=== PATIENT | male | born 1965 | race American Indian/Alaskan Native ===

== ENCOUNTER 2017-01-26 09:30 | Emergency (ER) | payer SELFPAY ==
[2017-01-26 10:38] LABS: Urine Drugs of Abuse Note Disclamer
[2017-01-26 10:56] LABS: Bilirubin,Urine NEG (Negative); Blood,Urine NEG (Negative); Ketones,Urine NEG (Negative); Leukocyte Esterase,Urine NEG (Negative); Mucus,Urine FEW /HPF; Nitrite,Urine NEG (Negative); Urobilinogen,Urine < 2.0 mg/dL (<2.0)
[2017-01-26 11:02] LABS: Basophils % (Auto) 0.9 % (0.0-1.8); Eosinophils % (Auto) 3.1 % (0.0-4.3); Hematocrit 43.4 % (35.5-45.6); Mean Corpuscular HGB Conc 32 % (32-34); Mean Corpuscular Hemoglobin 29 pg (28-32); Mean Corpuscular Volume 89 fl (84-94); Platelet Count 235 K/mm3 (140-440); Red Cell Distribution Width 14.3 % (13.2-15.2); White Blood Count 5.9 K/mm3 (4.5-11.0)
[2017-01-26 11:20] LABS: Creatine Kinase MB 3.4 ng/mL (0.0-4.0)
[2017-01-26 11:21] LABS: Alanine Aminotransferase 23 units/L (7-56); Albumin 3.8 g/dL (3.9-5); Albumin/Globulin Ratio 1.2 %; Alkaline Phosphatase 65 units/L (35-129); Anion Gap 16 mmol/L; BUN/Creatinine Ratio 15.45; Blood Urea Nitrogen 17 mg/dL (9-20); Calcium 9.7 mg/dL (8.4-10.2); Carbon Dioxide 25 mmol/L (22-30); Chloride 102.6 mmol/L (98-107); Creatine Kinase 237 units/L (55-170); Glucose 240 mg/dL (75-100); Potassium 3.9 mmol/L (3.6-5.0); Sodium 140 mmol/L (137-145)
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
[2017-01-26] MEDS ORDERED: APRESOLINE IV ONE (11:35)
--- NOTE | 2017-01-26 12:16 | Cat Scan Report ---
CT HEAD WITHOUT CONTRAST INDICATION: Dizziness. COMPARISON: 12/28/2014. FINDINGS: Noncontrast head CT demonstrates normal ventricles and sulci without acute or recent infarct, hemorrhage, mass effect or midline shift. No abnormal extra-axial fluid collections. Posterior fossa structures and basilar cisterns are within normal limits. Symmetric eye globes. Clear paranasal sinuses and mastoid air cells. Intact calvarium. Stable mild depressed old right lamina papyracea fracture. Normal overlying scalp soft tissues. Minimal radiopaque dental material incidentally noted. CONCLUSION: No acute intracranial CT abnormality, as described. Thank you for the opportunity to participate in this patient's care.
--- NOTE | 2017-01-26 14:18 | XRay Report ---
PORTABLE CHEST INDICATION: Chest pain. COMPARISON: 12/28/2014 FINDINGS: Portable, frontal chest radiograph demonstrates poor inspiration with exaggerated cardiomediastinal silhouette and crowded lung markings. No pleural effusions or CHF. EKG leads. Intact bones. Right chest wall and lateral costophrenic angle though excluded from the radiographic margin. CONCLUSION: Limited exam with hypoventilatory changes, as described. Thank you for the opportunity to participate in this patient's care.
[2017-01-26 15:10] VITALS: BP 153/64
== END 2017-01-26 15:08 | disposition home or self-care (01) ==
LOC: ED 09:30
DX: R55 Syncope and collapse (principal); R42 Dizziness and giddiness; G47.30 Sleep apnea, unspecified; I10 Essential (primary) hypertension; G43.909 Migraine, unspecified, not intractable, without status migrainosus; Z87.891 Personal history of nicotine dependence
CPT/HCPCS: 36415; 70450; 71010; 80053; 80307; 81001; 82550; 82553; 83880; 84484; 85025; 85379; 93005; 93010; 96374; 99285; J0360